=== PATIENT | male | born 1975 | race Caucasian/White ===

== ENCOUNTER → 2018-03-21 | Outpatient (CLI) | payer OTHER | LOC: M.RAD 10:21 | DX: M25.561 Pain in right knee (principal) ==

== ENCOUNTER → 2018-04-04 | Outpatient (CLI) | payer OTHER | LOC: M.MRI 13:47 | DX: S83.241A Other tear of medial meniscus, current injury, right knee, initial encounter (principal); M25.461 Effusion, right knee; R60.0 Localized edema; X58.XXXA Exposure to other specified factors, initial encounter; Y93.89 Activity, other specified; Y92.89 Other specified places as the place of occurrence of the external cause; Y99.8 Other external cause status ==

== ENCOUNTER → 2020-01-25 | Outpatient (CLI) | payer OTHER | LOC: M.LAB 15:44 | DX: Z11.59 Encounter for screening for other viral diseases (principal); Z20.828 Contact with and (suspected) exposure to other viral communicable diseases ==

== ENCOUNTER 2021-02-27 08:54 | Emergency (ER) | payer OTHER ==
[~2021-02-27] VITALS: Ht 175.3 cm; Wt 122.0 kg
[2021-02-27] MEDS ORDERED: LIPITOR 20 MG T20 M1 PO (09:03)
[2021-02-27] MEDS ORDERED: LISINOPRIL20 MG PO (09:04)
[2021-02-27 09:16] LABS: ABSOLUTE EOSINOPHILS 0.3 thou/uL (0.0-0.7); ABSOLUTE LYMPHOCYTES 1.6 thou/uL (0.8-5.3); ABSOLUTE MONOCYTES 0.6 thou/uL (0.0-1.2); ABSOLUTE NEUTROPHILS 4.3 thou/uL (1.6-8.1); BASOPHILS 0.5 %; EOSINOPHILS 3.7 %; HEMATOCRIT 41.7 % (42.0-52.0); HEMOGLOBIN 14.4 gm/dL (14.0-18.0); LYMPHOCYTES 23.7 %; MCH 30.8 pg (26.0-34.0); MCHC 34.6 g/dL (28.0-37.0); MCV 89.2 fL (80.0-100.0); MONOCYTES 9.5 %; MPV 7.9 fl. (7.2-11.1); NUCLEATED RBCS 0 /100WBC; PLATELET COUNT* 245 thou/uL (150-400); POLYS 62.6 %; RBC 4.68 mil/uL (4.50-6.00); RDW-CV 12.2 % (10.5-14.5); WBC 6.9 thou/uL (4.0-11.0)
[2021-02-27 09:27] LABS: CALCIUM 8.9 mg/dL (8.5-10.1); CREATININE 0.9 mg/dL (0.6-1.3); POTASSIUM 3.7 mmol/L (3.5-5.1)
[2021-02-27 09:37] LABS: ALBUMIN 3.9 g/dL (3.4-5.0); TOTAL BILIRUBIN 0.6 mg/dL (<0.1-1.0); TOTAL PROTEIN 7.6 g/dL (6.4-8.2)
[2021-02-27 11:49] VITALS: BP 144/79
--- NOTE | 2021-02-27 17:42 | EKG ---
[place] [address] ELECTROCARDIOGRAM REPORT Name: SASHA BEAVERS Room: 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
--- NOTE | 2021-02-27 17:44 | EKG ---
[place] [address] ELECTROCARDIOGRAM REPORT Name: SASHA BEAVERS Room: [facility]#: [id number] Admission: 02/27/21 Attend Phys: Discharge: 02/27/21 Date of : 71 Date of Service: 02/27/21 1103 Report #: [id number] THIS REPORT FOR: //name// [facility] ED Test Date: 2021-02-27 Test Time: 11:03:55 Pat Name: SASHA BEAVERS Department: Room: Gender: Mild Disabilities Teacher: : 1975 Requested By: Renny Nowak Order Number: [id number] MD: Kenneth López Measurements Intervals [place] Rate: 81 P: 35 ND: 176 QRS: 4 QRSD: 96 T: 6 QT: 369 QTc: 429 Interpretive Statements Sinus rhythm Low voltage, precordial leads RSR' in V1 or V2, right VCD or RVH Compared to ECG 02/27/2021 08:59:42 Low QRS voltage now present Right ventricular hypertrophy now present RSR' in V1 or V2 now present Sinus tachycardia no longer present Electronically Signed On 02-27-2021 17:43:44 CDT by Kenneth López [email or web address] <ELECTRONICALLY SIGNED> By: Kenneth López MD, [facility] 02/27/21 1743 1103 110 Kenneth López MD, [facility] /EPI
== END 2021-02-27 11:50 | disposition home or self-care (01) ==
LOC: M.ERS 08:54
PROVIDERS: Emergency Medicine Emergency Medical Services
DX: R07.89 Other chest pain (principal); I10 Essential (primary) hypertension; E78.00 Pure hypercholesterolemia, unspecified; Z88.5 Allergy status to narcotic agent; Z88.0 Allergy status to penicillin; Z88.6 Allergy status to analgesic agent